=== PATIENT | female | born 1990 | race Hispanic/Latino ===

== ENCOUNTER 2017-11-26 14:19 | Emergency (ER) | payer OTHER ==
[2017-11-26] MEDS ORDERED: DEXAMETHASONE SOD PHOSPHATE 10MG/ML 1ML VIAL ONE (14:35)
[2017-11-26] MEDS ORDERED: DiphenhydrAMINE HCL 50 MG/ML VIAL ONE (14:36)
== END 2017-11-26 15:20 | disposition home or self-care (01) ==
LOC: EDH 14:19
DX: L50.0 Allergic urticaria (principal)
CPT/HCPCS: 96372 ×2; 99284; J1100; J1200